=== PATIENT | female | born 1955 | race Caucasian/White ===

== ENCOUNTER → 2019-09-17 | Outpatient (CLI) | payer MEDICARE ==
--- NOTE | 2019-09-17 08:01 | US ---
EXAMINATION TYPE: US abdomen complete DATE OF EXAM: 09/17/2019 COMPARISON: NONE CLINICAL HISTORY: 63-year-old female RUQ Abd pain R10.11. TECHNIQUE: Multiple sonographic images of the abdomen are obtained. FINDINGS: EXAM MEASUREMENTS: Liver Length: 15.2 cm Gallbladder Wall: 0.2 cm CBD: 6.5 mm Spleen: 9.2 cm Right Kidney: 9.9 cm long Left Kidney: 10.5 cm long Pancreas: wnl Liver: wnl Gallbladder: wnl Evidence for sonographic Curry's sign: no CBD: Borderline dilated. This may be acceptable given the patient's age. Spleen: wnl Kidneys: No hydronephrosis on either side. Upper IVC: wnl Abd Aorta: moderate atherosclerotic changes. No evident aneurysm. IMPRESSION: 1. Borderline dilated caliber to the bile duct at 6.5 mm. This may be acceptable given patient's age. Correlate for normal alkaline phosphatase and bilirubin levels. 2. No gallstones or other specific abnormality seen.
== END | disposition home or self-care (01) ==
LOC: RADUSWWP 07:00
PROVIDERS: ATTEND Internal Medicine
DX: R10.11 Right upper quadrant pain (principal)
CPT/HCPCS: 76700

== ENCOUNTER → 2021-01-11 | Outpatient (CLI) | payer MEDICARE ==
--- NOTE | 2021-01-11 12:54 | XR ---
EXAMINATION TYPE: XR chest 2V, XR ribs RT DATE OF EXAM: 01/11/2021 COMPARISON: NONE HISTORY: [id number] MUSCLE SPASM BACK,PLEURODYNIA TECHNIQUE: Frontal and lateral views of the chest are obtained. 4 views of the right ribs are submit shy. FINDINGS: There is no focal air space opacity, pleural effusion, or pneumothorax seen. The cardiac silhouette size is within normal limits. The osseous structures are intact, there is an S-shaped th oracic lumbar scoliosis, multilevel spondylosis is present. There is no evident displaced rib fracture. IMPRESSION: No acute cardiopulmonary process. No evidence of displaced rib fracture. Bone scan could be performed for increased sensitivity as indicated. There is an underlying scoliosis, degenerative disc change.
== END | disposition home or self-care (01) ==
LOC: RADXRYALE 09:52
PROVIDERS: ATTEND Internal Medicine
DX: R07.81 Pleurodynia (principal); M62.838 Other muscle spasm
CPT/HCPCS: 71046

== ENCOUNTER → 2021-03-20 | Outpatient (CLI) | payer MEDICARE ==
[2021-03-20 11:09] LABS: Albumin 4.4 g/dL (3.5-5.0); Calcium 9.8 mg/dL (8.4-10.2); Potassium 4.2 mmol/L (3.5-5.1); Total Protein 7.5 g/dL (6.3-8.2)
[2021-03-20 11:17] LABS: Partial Thromboplastin Time 22.3 sec (22.0-30.0); Prothrombin Time 10.4 sec (9.0-12.0)
[2021-03-20 11:40] LABS: Appearance,Urine Cloudy (Clear); Bilirubin,Urine Negative (Negative); Blood,Urine Negative (Negative); Color,Urine Yellow; Glucose,Urine (UA) Negative (Negative); Ketones,Urine Negative (Negative); Leukocyte Esterase,Urine Negative (Negative); Mucus,Urine Rare /hpf; Nitrite,Urine Negative (Negative); PH, Urine 5.5 (5.0-8.0); Protein,Urine Negative (Negative); RBC,Urine <1 /hpf (0-5); Specific Gravity,Urine 1.013 (1.001-1.035); Squamous Epithelial Cell,Urine 8 /hpf (0-4); Urobilinogen,Urine <2.0 mg/dL (<2.0); WBC,Urine 2 /hpf (0-5)
[2021-03-20 11:46] LABS: HCT 52.8 % (34.0-46.0); HGB 16.8 gm/dL (11.4-16.0); MCH 28.9 pg (25.0-35.0); MCHC 31.9 g/dL (31.0-37.0); MCV 90.8 fL (80.0-100.0); Mean Platelet Volume 7.3; Platelet Count 385 k/uL (150-450); RBC 5.81 m/uL (3.80-5.40); RDW 13.7 % (11.5-15.5); WBC 11.5 k/uL (3.8-10.6)
== END | disposition home or self-care (01) ==
LOC: LABPAT 10:06
PROVIDERS: ATTEND Orthopaedic Surgery
DX: Z01.818 Encounter for other preprocedural examination (principal); I44.5 Left posterior fascicular block; M17.11 Unilateral primary osteoarthritis, right knee; R94.31 Abnormal electrocardiogram [ECG] [EKG]
CPT/HCPCS: 36415; 80053; 81001; 85027; 85610; 85730; 87070; 93005

== ENCOUNTER → 2021-04-05 | Outpatient (CLI) | payer MEDICARE ==
--- NOTE | 2021-04-06 09:30 | CT ---
EXAMINATION TYPE: CT lower leg RT SHOAIB mane knee replacement protocol DATE OF EXAM: 04/05/2021 COMPARISON: No radiographic correlation available HISTORY: 65-year-old female M17.11 Right knee, M25.561 pain in knee pre op planning TECHNIQUE: Contiguous axial scanning of the right lower extremity with scanning through the hip, knee , ankle without IV contrast. Coronal and sagittal reconstructions performed. CT DLP: 492 mGycm Automated exposure control for dose reduction was used. FINDINGS: Hip: Mild degenerative spurring and joint space narrowing at the right hip. Some vascular calcifications i n the right side of the pelvis. Osteitis pubis. Knee: Prominent lateral patellofemoral compartment cartilage narrowing. Bulky tricompartmental degenerative spurring especially medial and patellofemoral compartments. Small 1.4 cm Thornton's cyst and trace knee joint effusion. Posterior loose body measures 7 mm. Bone island within the femoral condyles. Extenso r mechanism appears intact. Ankle: There appears to be a low muscle belly of the conus brevis. Possible partial split of the peroneus br phyllis malleolar and inframalleolar. Subtalar joint align. Mild degenerative spurring medial aspect of the tibiotalar joint. IMPRESSION: CT OF THE RIGHT LOWER EXTREMITY FOR SURGICAL PLANNING ABOVE.
== END | disposition home or self-care (01) ==
LOC: RADCTMAIN 16:28
PROVIDERS: ATTEND Orthopaedic Surgery
DX: Z01.818 Encounter for other preprocedural examination (principal); M17.11 Unilateral primary osteoarthritis, right knee; M19.071 Primary osteoarthritis, right ankle and foot; M16.11 Unilateral primary osteoarthritis, right hip; M86.8X5 Other osteomyelitis, thigh; M71.21 Synovial cyst of popliteal space [Baker], right knee; M25.461 Effusion, right knee; M23.41 Loose body in knee, right knee

== ENCOUNTER → 2021-04-05 | Outpatient (CLI) | payer MEDICARE ==
[2021-04-05 16:54] LABS: Partial Thromboplastin Time 23.8 sec (22.0-30.0); Prothrombin Time 10.4 sec (9.0-12.0)
[2021-04-05 17:22] LABS: Appearance,Urine Clear (Clear); Bilirubin,Urine Negative (Negative); Blood,Urine Negative (Negative); Color,Urine Light Yellow; Glucose,Urine (UA) Negative (Negative); Ketones,Urine Negative (Negative); Leukocyte Esterase,Urine Negative (Negative); Nitrite,Urine Negative (Negative); Protein,Urine Negative (Negative); Specific Gravity,Urine 1.006 (1.001-1.035); Urobilinogen,Urine <2.0 mg/dL (<2.0)
[2021-04-05 22:33] LABS: HCT 51.5 % (37.2-46.3); HGB 16.3 g/dL (12.0-15.0); MCH 28.2 pg (27.0-32.0); MCHC 31.7 g/dL (32.0-37.0); MCV 89.3 fL (80.0-97.0); Mean Platelet Volume 9.9 fL (9.5-12.2); Platelet Count 397 X 10*3/uL (140-440); RBC 5.77 X 10*6/uL (4.10-5.20); RDW 13.4 % (11.5-14.5); WBC 11.61 X 10*3/uL (4.50-10.00)
[2021-04-05 23:02] LABS: African American GFR (CKD) 82.6 (60.0-200.0); Albumin 4.2 g/dL (3.8-4.9); Albumin/Globulin Ratio 1.46 (1.60-3.17); Anion Gap 12.3 mmol/L (10.00-18.00); BUN/Creat Ratio 19.86 Ratio (12.00-20.00); Blood Urea Nitrogen 16.8 mg/dL (9.0-27.0); Calcium 9.9 mg/dL (8.7-10.3); Carbon Dioxide 21.8 mmol/L (20.0-27.5); Globulin 2.9 g/dL (1.6-3.3); Non-African American GFR(CKD) 71.3 (60.0-200.0); Potassium 4.7 mmol/L (3.5-5.5); Total Bilirubin 0.4 mg/dL (0.30-1.20); Total Protein 7.1 g/dL (6.2-8.2)
== END | disposition home or self-care (01) ==
LOC: LABPAT 16:05
PROVIDERS: ATTEND Orthopaedic Surgery
DX: Z01.812 Encounter for preprocedural laboratory examination (principal)
CPT/HCPCS: 80053; 81003; 85027; 85610; 85730; 87070

== ENCOUNTER 2021-04-28 05:47 | Day surgery (SDC) | payer MEDICARE ==
[2021-04-26 10:24] VITALS: BMI 31.3
[~2021-04-28 05:47] MED LIST: VANCOMYCIN 1,000 MG in SODIUM CHLORIDE 0.9% 250 ML IVPB PRN
[2021-04-28] MEDS ORDERED: FAMOTIDINE 20 MG/2 ML VIAL IVP PRN (06:00)
[2021-04-28] MEDS ORDERED: TRANEXAMIC ACID 1,000 MG in SODIUM CHLORIDE 0.9% 100 ML IVPB PRN (06:00)
[2021-04-28] MEDS ORDERED: oxyCODONE ER 10 MG TAB.ER.12H PO PRN (06:00)
[2021-04-28] MEDS ORDERED: ACETAMINOPHEN TAB 500 MG TAB PO PRN (06:00)
[2021-04-28] MEDS ORDERED: KETOROLAC 15 MG/ML 1 ML VIAL IVP PRN (06:00)
[2021-04-28] MEDS ORDERED: ONDANSETRON 4 MG/2 ML VIAL IVP PRN ×2 (06:00→10:21)
[2021-04-28] MEDS ORDERED: DOCUSATE 100 MG CAP PO PRN (06:00)
[2021-04-28] MEDS ORDERED: DEXAMETHASONE SOD PHOSPHATE 10 MG/ML 1 ML VIAL IV PRN (06:00)
[2021-04-28] MEDS ORDERED: MIDAZOLAM 2 MG/2 ML VIAL IV PRN (06:05)
[2021-04-28] MEDS: LACTATED RINGERS 1,000 ML IV SCH ×5 (06:45→19:41)
[2021-04-28] MEDS ORDERED: LIDOCAINE 1% (10MG/ML) FOR IV START INTRADERMA ONE (06:45)
[2021-04-28] MEDS ORDERED: HYDROmorphone 0.5 MG/0.5 ML SYRINGE IVP PRN (07:00)
[2021-04-28] MEDS ORDERED: fentaNYL (PF) 50 MCG/ML 2 ML AMP IVP ONE (07:09)
[2021-04-28] MEDS ORDERED: PROPOFOL 10 MG/ML 20 ML VIAL IV ONE (07:31)
[2021-04-28] MEDS ORDERED: fentaNYL (PF) 50 MCG/ML 2 ML AMP ONE (07:31)
[2021-04-28] MEDS ORDERED: HYDROmorphone (PF) 1 MG/ML ONE (07:31)
[2021-04-28] MEDS ORDERED: ePHEDrine 50 MG/ML 1 ML VIAL ONE (07:31)
[2021-04-28] MEDS ORDERED: ROPIVACAINE 5 MG/ML 30 ML VIAL ONE (07:31)
[2021-04-28] MEDS ORDERED: PHENYLEPHRINE-0.9% NACL SYG 1,000 MCG/10 ML SYRINGE ONE (07:31)
[2021-04-28] MEDS ORDERED: SODIUM CHLORIDE 0.9% 100 ML BAG ONE (07:31)
[2021-04-28] MEDS ORDERED: MIDAZOLAM 2 MG/2 ML VIAL ONE (07:31)
[2021-04-28] MEDS ORDERED: TRANEXAMIC ACID 1,000 MG/10 ML VIAL ONE (07:31)
[2021-04-28] MEDS ORDERED: SUCCINYLCHOLINE CHLORIDE 100 MG/5 ML SYR IV ONE (07:31)
[2021-04-28] MEDS ORDERED: SODIUM CHLORIDE 0.9% (PF) 10 ML VIAL ONE (07:31)
[2021-04-28] MEDS ORDERED: LIDOCAINE 1% INJ 10MG/ML (20 ML MDV) ONE (07:31)
[2021-04-28] MEDS ORDERED: ceFAZolin 3,000 MG in SODIUM CHLORIDE 0.9% IRRIGATIO 3,000 ML IRRIGATION ONE (08:19)
--- NOTE | 2021-04-28 09:05 | P.ANPRN ---
Procedure Note - Anesthesia - Nerve Block Performed Right Adductor Canal Time Out Performed: Yes (07:07) Date of Procedure: 04/28/21 Procedure Start Time: Procedure Stop Time: :17 Location of Patient: PreOp Indication: Acute Post-Operative Pain, Requested by Surgeon (Dr Lubin) Sedation Type: Sedate with meaningful contact maintained Preparation: Sterile Prep Position: Supine Catheter: None Needle Types: Pajunk Needle Gauge: 21 Ultrasound used to visualize needle placement: Yes Ultrasound used to observe medication spread: Yes Injectate: 0.5% Ropivacaine (see comment for volume) (15cc + 5cc PF Normal saline) Blood Aspirated: No Pain Paresthesia on Injection Noted: No Resistance on Injection: Normal Events: Uneventful and Well Tolerated
--- NOTE | 2021-04-28 09:07 | P.ANPRN ---
Procedure Note - Anesthesia - Nerve Block Performed Right iPack Time Out Performed: Yes Date of Procedure: 04/28/21 Procedure Start Time: : Procedure Stop Time: : Location of Patient: PreOp Indication: Acute Post-Operative Pain, Requested by Surgeon (Dr Lubin) Sedation Type: Sedate with meaningful contact maintained Preparation: Sterile Prep Position: Supine Catheter: None Needle Types: Pajunk Needle Gauge: 21 Ultrasound used to visualize needle placement: Yes Ultrasound used to observe medication spread: Yes Injectate: 0.5% Ropivacaine (see comment for volume) (15cc +5cc PF Normnal saline) Blood Aspirated: No Pain Paresthesia on Injection Noted: No Resistance on Injection: Normal Image Stored and Saved: Yes Events: Uneventful and Well Tolerated
--- NOTE | 2021-04-28 09:57 | P.OP ---
Date of Procedure: 04/28/21 Preoperative Diagnosis: Right severe knee arthritis Postoperative Diagnosis: Right severe knee arthritis Procedure(s) Performed: Right total knee arthroplasty Implants: 1. Price triathlon size 2 cruciate retaining femur 2. Price triathlon size 2 universal baseplate 3. Price sized 2 CS ultra congruent polyethylene, 10 mm 4. Price 32 mm asymmetric polyethylene patellar component Anesthesia: GETA, regional Surgeon: Neymar Lubin Supplier Quality Engineering Manager #1: Gabi Lerma Estimated Blood Loss (ml): 100 IV fluids (ml): 1,200 Pathology: none sent Condition: stable Disposition: PACU Indications for Procedure: The patient is a very pleasant 65-year-old female with severe right knee arthritis was failed over 1 year of conservative treatments. Since she had failed conservative treatment she requested proceeding with the total knee arthroplasty. We discussed the potential risks and complications at length in the office including but certainly not limited to risks of anesthesia, wound healing issues, superficial infection, deep periprosthetic joint infection, aseptic loosening, instability, stiffness, damage to local blood vessels or nerves, an inability to regain preinjury level of function, continued or worsened pain, dissatisfaction with surgical outcome, need for further surgery, DVT, PE, other medical complications, and possibly loss of life or limb. The patient voiced her understanding that while these are the most common complications other less common complications are possible. She provided her verbal and written consent to go forward with surgery. Description of Procedure: The patient was identified in preoperative holding and the correct operative extremity was verified and marked with a marker. I reviewed the consent form with the patient at length. All of their questions were answered. The patient was given a block by anesthesia. They were then brought back to the operating room. They were transferred onto the operating room table where a general anesthetic, preoperative antibiotics, and tranexamic acid were administered by anesthesia. A tourniquet was applied to the proximal aspect of the operative extremity. The contralateral extremity was padded under the heel and secured to the operating room table with a nonsterile blue towel and tape. The ipsilateral arm was carefully draped across the patient's chest and secured with a pillow and foam. A post was applied over the lateral aspect of the ipsilateral thigh and a bolster was placed under the ipsilateral foot. I verified that the operative extremity was stable and the knee was flexed to 90. The operative extremity was then placed in a leg fitzpatrick, nonsterile drapes were applied, and the extremity was prepped and draped sterilely in the standard sterile fashion. Prior to starting surgery timeout was performed identifying the correct patient, operative extremity, and procedure. The leg was then elevated, exsanguinated with an Esmarch bandage, and the tourniquet was inflated. An anterior midline incision was made sharply with a scalpel. Once I had dissected deep to the superficial fascial layer medial and lateral flaps were elevated. A medial parapatellar arthrotomy was created. Upon opening the knee joint there were diffuse arthritic changes in all 3 compartments. The anterior horn of the medial meniscus were sharply released and a medial release was performed around the posterior medial corner of the knee to facilitate retractor placement. The fat pad was excised with electrocautery. The patella was found to be severely arthritic and a provisional cut was made with a sagittal saw to facilitate mobilization of the extensor mechanism during the procedure. Remnants of the ACL and PCL were then excised from the notch. 4 mm pins were then placed within the incision in the medial distal femur and proximal tibia. Arrays were applied to the pins and I verified they were completely tightened. The knee was then registered with the Voxel (Internap) robot and manipulations in implant position were made to balance the knee and opitmize implant position. Using the Nanveet robotic saw all cuts were made in accordance with our plan. After all bony fragments had been removed the cuts were verified with the planar probe. The tibia was then subluxed forward and sized. The knee was brought into flexion and a lamina hand screen printer was placed to allow removal of the meniscal remnants both medially and laterally as well as posterior osteophytes. Local anesthetic was then infiltrated around the joint capsule. Trial implants were then placed within the knee. Range of motion and collateral ligament tension was then evaluated. Adjustments in implant size and position were then made accordingly. Once the knee was felt to be appropriately balanced the Navneet pins were removed. The patella was then recut, sized, and punched. A trial patellar button was then placed. With the trial components in place, the patella tracked midline. The femur was then drilled and the trial component removed. The trial tibial component was then appropriately rotated, pinned, and prepared for the keel. All trial components were then removed from the knee. The knee was thoroughly irrigated with pulsatile lavage. Cement was prepared via vacuum mixing in a bowl on the back table. I then hand pressurized cement into the femur and tibia and placed the implants beginning with the tibial base tray and poly liner, femoral component, and finally the patellar button. All extruded cement was removed including from the pin sites. Once the cement had hardened the knee was evaluated one final time with the final polyethylene liner in place. The knee had full extension and flexion and felt stable to varus and valgus stress throughout the arc of motion. The tourniquet was released and with the tourniquet down the patella tracked midline. All bleeders were controlled with electrocautery. The knee was then soaked for 3 minutes with a dilute Betadine soak. The knee was thoroughly irrigated using 3 L of sterile saline and pulsatile lavage. A deep drain was placed. The extensor mechanism was then reapproximated using pop off Vicryl sutures followed by a running barbed suture. The knee was then closed in layers with a 0 strata fix for the deep fascial layer, 2-0 strata fix for the superficial subcutaneous layer and Monocryl and Steri-Strips for the skin. A sterile dressing and drain sponge were applied. I verified that all instrument, sponge, and sharp counts were correct. The patient was then transferred off the operating room table, extubated, and brought to recovery having tolerated the procedure well. Amada Bonilla PA-C was required as a skilled sales office assistant due to the complexity of the procedure for patient positioning, draping, retraction, placement of hardware, and closure of wound. PLAN: The patient can weight-bear as tolerated on the operative extremity. DVT prophylaxis with aspirin 81 mg twice a day based on preoperative risk stratification. Follow-up in the office in 2 weeks for wound check and x-rays of the knee including an AP and lateral.
[2021-04-28] MEDS ORDERED: bisacodyL 10 MG SUPP RECTAL PRN (10:21)
[2021-04-28] MEDS ORDERED: NALOXONE 0.4 MG/ML 1 ML VIAL IV PRN (10:21)
[2021-04-28] MEDS ORDERED: MAGNESIUM HYDROXIDE 2,400 MG/10 ML CUP PO PRN (10:21)
[2021-04-28] MEDS ORDERED: TEMAZEPAM 15 MG CAP PO PRN (10:21)
[2021-04-28] MEDS ORDERED: HYDROmorphone 0.2 MG/1 ML SYRINGE IVP PRN ×2 (10:21)
[2021-04-28] MEDS ORDERED: HYDROmorphone 1 MG/ML 1 ML SYRINGE IVP PRN (10:21)
[2021-04-28] MEDS ORDERED: NA PHOS,M-B/NA PHOS,DI-BA 133 ML ENEMA RECTAL PRN (10:21)
--- NOTE | 2021-04-28 10:43 | XR ---
EXAMINATION TYPE: XR knee limited RT DATE OF EXAM: 04/28/2021 COMPARISON: NONE TECHNIQUE: Two views submitted HISTORY: Post op FINDINGS: There is a prosthetic knee in near anatomic alignment. There is soft tissue edema and emphysema. IMPRESSION: 1. Postoperative change. Appears in near-anatomic alignment
[2021-04-28] MEDS: HYDROcodone/APAP 7.5-325MG 1 EACH TAB PO PRN ×2 (16:17→22:09)
[2021-04-28] MEDS: ASPIRIN 81 MG PO SCH (19:40)
[2021-04-28] MEDS ORDERED: SENNOSIDES-DOCUSATE SODIUM 1 EACH TAB PO SCH (21:00)
[2021-04-29] MEDS: HYDROcodone/APAP 7.5-325MG 1 EACH TAB PO PRN ×2 (04:41→10:17)
[2021-04-29 07:22] VITALS: BP 115/68; PULSE 61; RESP 20; TEMP 97.9
[2021-04-29] MEDS: ASPIRIN 81 MG PO SCH (08:25)
[2021-04-29] MEDS: LACTATED RINGERS 1,000 ML IV SCH (08:26)
[2021-04-29 08:53] LABS: Basophils # (A) 0.03 X 10*3/uL (0.00-0.10); Basophils % (A) 0.2 %; Eosinophils # (A) 0 X 10*3/uL (0.04-0.35); Eosinophils % (A) 0 %; HCT 40.6 % (37.2-46.3); HGB 12.8 g/dL (12.0-15.0); Immature Grans, Automated 0.4 %; Lymphocytes # (A) 1.43 X 10*3/uL (0.90-5.00); Lymphocytes % (A) 9.1 %; MCH 28.4 pg (27.0-32.0); MCHC 31.5 g/dL (32.0-37.0); Mean Platelet Volume 9.9 fL (9.5-12.2); Monocytes # (A) 1.11 X 10*3/uL (0.20-1.00); Monocytes % (A) 7.1 %; NRBC Per 100 WBC 0 /100 WBCS (0.0-0.0); Neutrophils % (A) 83.2 %; Platelet Count 333 X 10*3/uL (140-440); RBC 4.51 X 10*6/uL (4.10-5.20); RDW 13.8 % (11.5-14.5); WBC 15.73 X 10*3/uL (4.50-10.00)
[2021-04-29] MEDS ORDERED: MELOXICAM 7.5 MG TAB PO SCH (09:00)
--- NOTE | 2021-04-29 10:35 | P.DS ---
Providers Expected date of discharge: 04/29/21 Attending physician: Neymar Lubin Consults: 04/28/21 10:21 Consult Physician Routine Consulting Provider: Brenda Freire Consult Reason/Comments: Medical management Do you want consulting provider notified?: Yes Primary care physician: Pau Powell - Discharge Diagnosis(es) (1) Primary osteoarthritis of right knee Current Visit: Yes Status: Acute (2) Status post total right knee replacement Current Visit: Yes Status: Acute Hospital Course: This is a pleasant 65-year-old female last seen in our office with complaints of right knee pain. Patient has known history of degenerative arthritis of the right knee and presented to discuss options. After discussion and consideration, patient elected to proceed with a total knee arthroplasty of the right knee. The patient was seen preoperatively and medically cleared for surgery by her primary care physician. The patient was admitted to [facility] and underwent right total knee arthroplasty on 04/28/[address] Lubin. The procedure was performed without complications or sequelae. The patient has done well postoperatively. The patient was seen and evaluated at bedside today and denies any new complaints. Pain is reasonably controlled. Dressing is clean dry and intact. Incision looks fine with no erythema or active drainage. Calf is soft and nontender. The patient has full foot and ankle motion without difficulty. Patient's right lower extremity is neurovascular intact. Patient is orthopedically stable for discharge to home today. Pertinent Studies: Laboratory Tests 04/29/21 03:50 WBC 15.73 H RBC 4.51 Hgb 12.8 Hct 40.6 MCHC 31.5 L Patient Condition at Discharge: Stable Plan - Discharge Summary Discharge Rx Participant: Yes New Discharge Prescriptions: New Aspirin [Adult Low Dose Aspirin EC] 81 mg PO BID #1 tab Meloxicam [Mobic] 1 - 2 tab PO DAILY PRN #30 tab PRN Reason: Pain Gabapentin [Neurontin] 300 mg PO BID 5 Days #10 cap HYDROcodone/APAP 7.5-325MG [Clayton 7.5-325] 1 - 2 tab PO Q6HR PRN #32 tab PRN Reason: Pain Sennosides-Docusate Sodium [Senokot-S] 1 tab PO BID #60 tablet Ondansetron Odt [Zofran Odt] 4 mg PO Q8HR PRN #14 tab PRN Reason: Nausea No Action traMADol HCL [Ultram] 50 mg PO Q6HR PRN PRN Reason: Pain Alendronate Sodium [Fosamax] 70 mg PO QMONTHLY Aspirin/Acetaminophen/Caffeine [Excedrin Extra Strength Caplet] 1 each PO DIRECTED PRN PRN Reason: Pain lisinopriL 10 mg PO HS Atorvastatin [Lipitor] 40 mg PO HS Discharge Medication List Alendronate Sodium [Fosamax] 70 mg PO QMONTHLY 04/26/21 [History] Aspirin/Acetaminophen/Caffeine [Excedrin Extra Strength Caplet] 1 each PO DIRECTED PRN 04/26/21 [History] Atorvastatin [Lipitor] 40 mg PO HS 04/26/21 [History] lisinopriL 10 mg PO HS 04/26/21 [History] traMADol HCL [Ultram] 50 mg PO Q6HR PRN 04/26/21 [History] Aspirin [Adult Low Dose Aspirin EC] 81 mg PO BID #1 tab 04/28/21 [Rx] Gabapentin [Neurontin] 300 mg PO BID 5 Days #10 cap 04/28/21 [Rx] HYDROcodone/APAP 7.5-325MG [Clayton 7.5-325] 1 - 2 tab PO Q6HR PRN #32 tab 04/28/21 [Rx] Meloxicam [Mobic] 1 - 2 tab PO DAILY PRN #30 tab 04/28/21 [Rx] Ondansetron Odt [Zofran Odt] 4 mg PO Q8HR PRN #14 tab 04/28/21 [Rx] Sennosides-Docusate Sodium [Senokot-S] 1 tab PO BID #60 tablet 04/28/21 [Rx] Follow up Appointment(s)/Referral(s): [facility], [NON-STAFF] - ([facility] will call you to schedule your in home nursing and physical therapy visits. ) Neymar Lubin MD [Medical Doctor] - 2 Weeks Activity/Diet/Wound Care/Special Instructions: May bear weight as tolerated with walker. May shower 2 days post op. Leave Optifoam dressing intact 7 days. Discharge Disposition: HOME WITH HOME HEALTH SERVICES
== END 2021-04-29 12:05 | disposition home health service (06) ==
LOC: OR 05:47 → 4SSUR 09:48 → OR 04-29 12:05
PROVIDERS: ATTEND Orthopaedic Surgery
DX: M17.11 Unilateral primary osteoarthritis, right knee (principal); I10 Essential (primary) hypertension; E78.5 Hyperlipidemia, unspecified; M79.7 Fibromyalgia; L98.9 Disorder of the skin and subcutaneous tissue, unspecified; K21.9 Gastro-esophageal reflux disease without esophagitis; Z97.3 Presence of spectacles and contact lenses; Z90.710 Acquired absence of both cervix and uterus; Z20.822 Contact with and (suspected) exposure to COVID-19; Z98.890 Other specified postprocedural states; Z83.3 Family history of diabetes mellitus; Z87.891 Personal history of nicotine dependence; Z79.83 Long term (current) use of bisphosphonates; Z79.891 Long term (current) use of opiate analgesic; Z79.899 Other long term (current) drug therapy; M19.90 Unspecified osteoarthritis, unspecified site
CPT/HCPCS: 97116; 97110; 97161; 64447; 64999; 76942; 85025; 88300; 87635; 73560; 27447; C1776; C1713; J2250; J3370; J1100; J0690 ×2; J2405; J2001; J3010; J1170; J2795; J1885; J2370; J0330; J2704

== ENCOUNTER → 2022-06-05 | Outpatient (CLI) | payer MEDICARE ==
[2022-06-05 22:35] LABS: Basophils # (A) 0.04 X 10*3/uL (0.00-0.10); Basophils % (A) 0.3 %; Eosinophils # (A) 0.15 X 10*3/uL (0.04-0.35); Eosinophils % (A) 1.1 %; HCT 51.7 % (37.2-46.3); Immature Grans, Automated 0.8 %; Lymphocytes # (A) 3.68 X 10*3/uL (0.90-5.00); Lymphocytes % (A) 27.7 %; MCH 26.3 pg (27.0-32.0); MCHC 30.9 g/dL (32.0-37.0); Mean Platelet Volume 10.1 fL (9.5-12.2); Monocytes % (A) 7.5 %; NRBC Per 100 WBC 0 /100 WBCS (0.0-0.0); Neutrophils # (A) 8.32 X 10*3/uL (1.80-7.70); Neutrophils % (A) 62.6 %; Platelet Count 332 X 10*3/uL (140-440); RBC 6.08 X 10*6/uL (4.10-5.20); RDW 15.8 % (11.5-14.5); WBC 13.29 X 10*3/uL (4.50-10.00)
[2022-06-05 23:19] LABS: Hepatitis B Surface Antigen Nonreactive (Nonreactive); Hepatitis C IgG Antibody Nonreactive (Nonreactive)
[2022-06-06 00:53] LABS: African American GFR (CKD) 75.5 (60.0-200.0); Albumin/Globulin Ratio 1.67 (1.60-3.17); Anion Gap 12.3 mmol/L (10.00-18.00); BUN/Creat Ratio 29.03 Ratio (12.00-20.00); Blood Urea Nitrogen 26.3 mg/dL (9.0-27.0); Calcium 9.6 mg/dL (8.7-10.3); Carbon Dioxide 23.2 mmol/L (20.0-27.5); Globulin 2.4 g/dL (1.6-3.3); Hepatitis B Surface Antibody Reactive (Nonreactive); Non-African American GFR(CKD) 65.2 (60.0-200.0); Potassium 4.3 mmol/L (3.5-5.5); Total Bilirubin 0.3 mg/dL (0.30-1.20); Total Protein 6.4 g/dL (6.2-8.2)
== END | disposition home or self-care (01) ==
LOC: LABWHC1 10:59
PROVIDERS: ATTEND Student in an Organized Health Care Education/Training Program
DX: L27.0 Generalized skin eruption due to drugs and medicaments taken internally (principal); L30.9 Dermatitis, unspecified; D48.5 Neoplasm of uncertain behavior of skin
CPT/HCPCS: 36415; 80053; 85025; 86480; 86704; 86706; 86803; 87340

== ENCOUNTER 2022-06-20 16:33 | Emergency (ER) | payer MEDICARE ==
[2022-06-20 17:58] LABS: Basophils % (A) 0 %; Eosinophils % (A) 0 %; HCT 46.2 % (34.0-46.0); HGB 15.3 gm/dL (11.4-16.0); Lymphocytes # (A) 0.9 k/uL (1.0-4.8); Lymphocytes % (A) 7 %; MCH 27.6 pg (25.0-35.0); MCHC 33.1 g/dL (31.0-37.0); MCV 83.2 fL (80.0-100.0); Mean Platelet Volume 7.5; Monocytes # (A) 0.4 k/uL (0-1.0); Monocytes % (A) 3 %; Neutrophils # (A) 11.1 k/uL (1.3-7.7); Neutrophils % (A) 89 %; Platelet Count 294 k/uL (150-450); RBC 5.55 m/uL (3.80-5.40); RDW 14.7 % (11.5-15.5); WBC 12.6 k/uL (3.8-10.6)
[2022-06-20 18:09] LABS: ALT 29 U/L (4-34); AST 19 U/L (14-36); African American GFR (CKD) >90 (>60 ml/min/1.73 sqM); Albumin 3.7 g/dL (3.5-5.0); Alkaline Phosphatase 71 U/L (38-126); Anion Gap 8 mmol/L; Blood Urea Nitrogen 22 mg/dL (7-17); Calcium 9.5 mg/dL (8.4-10.2); Carbon Dioxide 21 mmol/L (22-30); Chloride 107 mmol/L (98-107); Glucose 133 mg/dL (74-99); Non-African American GFR(CKD) 82 (>60 ml/min/1.73 sqM); Potassium 4.4 mmol/L (3.5-5.1); Sodium 136 mmol/L (137-145); Total Bilirubin 0.3 mg/dL (0.2-1.3); Total Protein 6.5 g/dL (6.3-8.2)
[2022-06-20 18:19] LABS: INR 0.9 (<1.2); Prothrombin Time 9.8 sec (9.0-12.0)
[2022-06-20] MEDS ORDERED: LABETALOL 5 MG/ML VIAL MDV IVP STA (18:24)
[2022-06-20 18:33] LABS: Partial Thromboplastin Time 21.7 sec (22.0-30.0)
--- NOTE | 2022-06-20 18:51 | XR ---
EXAMINATION TYPE: XR chest 2V DATE OF EXAM: 06/20/2022 COMPARISON: NONE HISTORY: Shortness of breath TECHNIQUE: Frontal and lateral views of the chest are obtained. FINDINGS: Scattered senescent parenchymal changes noted. Hyperinflation compatible with COPD. No evidence for infiltrate. No evidence for atelectasis. Heart size is stable. Mediastinal structures are stable and grossly unremarkable. No evidence for hilar prominence. Degenerative changes dorsal spine. IMPRESSION: 1. No evidence for acute pulmonary disease.
--- NOTE | 2022-06-20 19:47 | CT ---
EXAMINATION TYPE: CT brain wo con DATE OF EXAM: 06/20/2022 COMPARISON: None HISTORY: headache and high BP CT DLP: 1133.4 mGycm Automated exposure control for dose reduction was used. FINDINGS: There is a large calcified mass which most likely is extra-axial along the left frontal cerebral conv exity measuring 2.3 x 1.8 cm with compression the adjacent cortex. There is no midline shift or mass effect. Mild generalized degenerative change. Intracranial atherosclerotic changes. Craniocervical junction is demonstrating a low-lying cerebellar tonsils the level the foramen magnum. Changes of chronic sinusitis with nasal septal deviation. Orbits are symmetric. Faint periventricula r low-attenuation nonspecific but most typical remote white matter ischemia. IMPRESSION: 1. No evidence of acute hemorrhage or mass effect. 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 Follow-up MRI recommended. 2. Mild degenerative change 3. low-lying cerebellar tonsils
[2022-06-20] MEDS ORDERED: hydrALAZINE HCL 20 MG/ML 1 ML VIAL IVP STA (19:55)
[2022-06-20] MEDS ORDERED: ORPHENADRINE 30 MG/ML 2 ML VIAL IVP STA (20:35)
[2022-06-20] MEDS ORDERED: KETOROLAC 15 MG/ML 1 ML VIAL IVP STA (20:35)
--- NOTE | 2022-06-20 20:53 | ED ---
General Adult HPI - General Chief complaint: Recheck/Abnormal Lab/Rx Stated complaint: HIGH BP Time Seen by Provider: 06/20/22 17:59 Source: patient Mode of arrival: ambulatory Limitations: no limitations - History of Present Illness Initial comments: Patient is a 66-year-old female presenting with chief complaint of elevated blood pressure. Patient was sent in by her PCP Dr. Powell. Patient was discontinued of her antihypertensives about 1 month ago by her environmental health physician and not placed on an alternative medication. Patient has had intermittent headaches ongoing for the last month. She also admits to intermittent blurry vision. Pain is sharp and radiates up into the occipital region. No head injury, loss of consciousness, seizure, nausea, vomiting, dizziness, chest pain, palpitations, numbness, tingling. - Related Data Home Medications Medication Instructions Recorded Confirmed Alendronate Sodium [Fosamax] 70 mg PO QMONTHLY 04/26/21 06/20/22 Apremilast [Otezla 28 day Starter 1 tab PO DIRECTED 06/20/22 06/20/22 Pack 10 mg/20 mg (4 tabs ea) & 30 mg (19 tabs)] predniSONE See Taper PO DIRECTED 06/20/22 06/20/22 Previous Rx's Medication Instructions Recorded amLODIPine [Norvasc] 5 mg PO DAILY #5 tab 06/20/22 Allergies Allergy/AdvReac Type Severity Reaction Status Date / Time No Known Allergies Allergy Verified 06/20/22 17:06 Review of Systems ROS Statement: Those systems with pertinent positive or pertinent negative responses have been documented in the HPI. ROS Other: All systems not noted in ROS Statement are negative. Past Medical History Past Medical History: Fibromyalgia, Hypertension, Osteoarthritis (OA) Additional Past Medical History / Comment(s): scoliosis, DDD History of Any Multi-Drug Resistant Organisms: None Reported Past Surgical History: Hysterectomy, Joint Replacement Additional Past Surgical History / Comment(s): rt knee, Past Psychological History: No Psychological Hx Reported Smoking Status: Never smoker Past Alcohol Use History: Rare Past Drug Use History: None Reported General Exam Limitations: no limitations General appearance: alert, in no apparent distress Head exam: Present: atraumatic, normocephalic, normal inspection Eye exam: Present: normal appearance, PERRL, EOMI. Absent: scleral icterus, conjunctival injection, periorbital swelling Neck exam: Present: normal inspection, full ROM Respiratory exam: Present: normal lung sounds bilaterally. Absent: respiratory distress, wheezes, rales, rhonchi, stridor Cardiovascular Exam: Present: regular rate, normal rhythm, normal heart sounds. Absent: systolic murmur, diastolic murmur, rubs, gallop, clicks Neurological exam: Present: alert, oriented X3, CN II-XII intact Expanded Patient oriented to: Present: person, place, time Speech: Present: fluid speech Cranial nerves: EOM's Intact: Normal, Facial Sensation: Normal Cerebellar function: Finger to Nose: Normal Sensory exam: Upper Extremity Light Touch: Normal, Lower Extremity Light Touch: Normal Motor strength exam: RUE: 5, LUE: 5, RLE: 5, LLE: 5 Eye Response: (4) open spontaneously Motor Response: (6) obeys commands Verbal Response: (5) oriented [place] Total: 15 Psychiatric exam: Present: normal affect, normal mood Skin exam: Present: warm, dry, intact, normal color. Absent: rash Course Vital Signs 06/20/22 06/20/22 06/20/22 16:55 18:15 19:14 Temperature 98.3 F Pulse Rate 86 79 67 Respiratory 20 18 17 Rate Blood Pressure 177/117 191/114 188/95 O2 Sat by Pulse 96 96 95 Oximetry 06/20/22 06/20/22 06/20/22 20:10 20:49 21:24 Temperature 98.0 F Pulse Rate 61 66 69 Respiratory 16 17 16 Rate Blood Pressure 187/97 178/92 181/88 O2 Sat by Pulse 97 96 96 Oximetry EKG Findings - EKG Comments: EKG Findings:: Sinus rhythm ventricular rate 79. UT interval 136. QRS 91. QT 355. QTc 389. No ischemic changes. Medical Decision Making - Medical Decision Making Was pt. sent in by a medical professional or institution (, PA, CL[employer] TR[employer], urgent care, hospital, or penitentiary...) When possible be specific @ -No Did you speak to anyone other than the patient for history (EMS, parent, family, police, friend...)? What history was obtained from this source @ -No Did you review nursing and triage notes (agree or disagree)? Why? @ -I reviewed and agree with nursing and triage notes Were old charts reviewed (outside hosp., previous admission, EMS record, old EKG, old radiological studies, urgent care reports/EKG's, penitentiary records)? Report findings @ -No old charts were reviewed Differential Diagnosis (chest pain, altered mental status, abdominal pain women, abdominal pain men, vaginal bleeding, weakness, fever, dyspnea, syncope, heada bryson, dizziness, GI bleed, back pain, seizure, CVA, palpatations, mental health, musculoskeletal)? @ -MDM Differential Headache: Migraine, tension, cluster, carbon monoxide, central venous thrombosis, pension karma temporal arteritis, acute closure glaucoma, intercranial hemorrhage, mastoiditis, sinusitis, head injury this is not meant to be an all-inclusive list. EKG interpreted by me (3pts min.). @ -As above X-rays interpreted by me (1pt min.). @ -Chest x-ray shows no acute process CT interpreted by me (1pt min.). @ -CT shows no evidence of acute hemorrhage or mass effect. There is a 2.3 x 1.8 cm extra-axial mass involving the left cerebral convex the with mild compression of the frontal lobe most typical of a calcified meningioma. Mild degenerative change. Low-lying cerebellar tonsils. U/S interpreted by me (1pt. min.). @ -None done What testing was considered but not performed or refused? (CT, X-rays, U/S, labs)? Why? @ -None What meds were considered but not given or refused? Why? @ -None Did you discuss the management of the patient with other professionals (professionals i.e. , PA, [employer], lab, RT, psych nurse, social services analyst, union laborer, teacher, [employer] operations staff officer, egg caser)? Give summary @ -No Was smoking cessation discussed for >3mins.? @ -No Was critical care preformed (if so, how long)? @ -No Were there social determinants of health that impacted care today? How? (Homelessness, low income, unemployed, alcoholism, drug addiction, transportation, low edu. Level, literacy, decrease access to med. care, longterm, rehab)? @ -No Was there de-escalation of care discussed even if they declined (Discuss DNR or withdrawal of care, Hospice)? DNR status @ -No What co-morbidities impacted this encounter? (DM, HTN, Smoking, COPD, CAD, Cancer, CVA, ARF, Chemo, Hep., AIDS, mental health diagnosis, sleep apnea, morbid obesity)? @ -Hypertension Was patient admitted / discharged? Hospital course, mention meds given and route, prescriptions, significant lab abnormalities, going to OR and other pertinent info. @ -Discharge. Patient is a 66-year-old female presenting with chief complaint of elevated blood pressure and headache. Patient fosinopril was discontinued about a month ago by her environmental health physician due to concerns for rash. Patient has had intermittent headache for a few weeks. On physical examination there are no focal neurological deficits. Laboratory shows WBC 12.6. Sodium 136. Chest x- ray is negative. Troponin is negative. CT of the brain shows no acute intracranial process, there is a mass most consistent with calcified meningioma which appears chronic. Follow-up MRI and outpatient setting as recommended. Patient is given antihypertensive as well as analgesic medication for her headache. On reassessment she reports improvement in her symptoms. Blood pressure has come down to 178/92. Patient will be following up with her PCP. Follow-up with PCP. Report back to ER with any new or worsening symptoms. Discussed return parameters and answered all questions. Patient conveyed verbal understanding and agreed to the plan. I discussed this case in detail with my attending Dr. Hernandez Undiagnosed new problem with uncertain prognosis? @ -No Drug Therapy requiring intensive monitoring for toxicity (Heparin, Nitro, Insulin, Cardizem)? @ -No Were any procedures done? @ -No Diagnosis/symptom? @ -Hypertension Acute, or Chronic, or Acute on Chronic? @ -Acute on chronic Uncomplicated (without systemic symptoms) or Complicated (systemic symptoms)? @ -Complicated Side effects of treatment? @ -No Exacerbation, Progression, or Severe Exacerbation? @ -No Poses a threat to life or bodily function? How? (Chest pain, USA, CT, pneumonia, PE, COPD, DKA, ARF, appy, cholecystitis, CVA, Diverticulitis, Homicidal, Suicidal, threat to staff... and all critical care pts) @ - - Lab Data Result diagrams: 06/20/22 17:48 06/20/22 17:48 Lab Results 06/20/22 06/20/22 06/20/22 Range/Units 17:48 17:48 17:48 WBC 12.6 H (3.8-10.6) k/uL RBC 5.55 H (3.80-5.40) m/uL Hgb 15.3 (11.4-16.0) gm/dL Hct 46.2 H (34.0-46.0) % MCV 83.2 (80.0-100.0) fL MCH 27.6 (25.0-35.0) pg MCHC 33.1 (31.0-37.0) g/dL RDW 14.7 (11.5-15.5) % Plt Count 294 (150-450) k/uL MPV 7.5 Neutrophils % 89 % Lymphocytes % 7 % Monocytes % 3 % Eosinophils % 0 % Basophils % 0 % Neutrophils # 11.1 H (1.3-7.7) k/uL Lymphocytes # 0.9 L (1.0-4.8) k/uL Monocytes # 0.4 (0-1.0) k/uL Eosinophils # 0.0 (0-0.7) k/uL Basophils # 0.0 (0-0.2) k/uL PT 9.8 (9.0-12.0) sec INR 0.9 (<1.2) APTT 21.7 L (22.0-30.0) sec Sodium 136 L (137-145) mmol/L Potassium 4.4 (3.5-5.1) mmol/L Chloride 107 (98-107) mmol/L Carbon Dioxide 21 L (22-30) mmol/L Anion Gap 8 mmol/L BUN 22 H (7-17) mg/dL Creatinine 0.75 (0.52-1.04) mg/dL Est GFR (CKD-EPI)AfAm >90 (>60 ml/min/1.73 sqM) Est GFR (CKD-EPI)NonAf 82 (>60 ml/min/1.73 sqM) Glucose 133 H (74-99) mg/dL Calcium 9.5 (8.4-10.2) mg/dL Total Bilirubin 0.3 (0.2-1.3) mg/dL AST 19 (14-36) U/L ALT 29 (4-34) U/L Alkaline Phosphatase 71 (38-126) U/L Troponin I (0.000-0.034) ng/mL Total Protein 6.5 (6.3-8.2) g/dL Albumin 3.7 (3.5-5.0) g/dL 06/20/22 Range/Units 17:48 WBC (3.8-10.6) k/uL RBC (3.80-5.40) m/uL Hgb (11.4-16.0) gm/dL Hct (34.0-46.0) % MCV (80.0-100.0) fL MCH (25.0-35.0) pg MCHC (31.0-37.0) g/dL RDW (11.5-15.5) % Plt Count (150-450) k/uL MPV Neutrophils % % Lymphocytes % % Monocytes % % Eosinophils % % Basophils % % Neutrophils # (1.3-7.7) k/uL Lymphocytes # (1.0-4.8) k/uL Monocytes # (0-1.0) k/uL Eosinophils # (0-0.7) k/uL Basophils # (0-0.2) k/uL PT (9.0-12.0) sec INR (<1.2) APTT (22.0-30.0) sec Sodium (137-145) mmol/L Potassium (3.5-5.1) mmol/L Chloride (98-107) mmol/L Carbon Dioxide (22-30) mmol/L Anion Gap mmol/L BUN (7-17) mg/dL Creatinine (0.52-1.04) mg/dL Est GFR (CKD-EPI)AfAm (>60 ml/min/1.73 sqM) Est GFR (CKD-EPI)NonAf (>60 ml/min/1.73 sqM) Glucose (74-99) mg/dL Calcium (8.4-10.2) mg/dL Total Bilirubin (0.2-1.3) mg/dL AST (14-36) U/L ALT (4-34) U/L Alkaline Phosphatase (38-126) U/L Troponin I <0.012 (0.000-0.034) ng/mL Total Protein (6.3-8.2) g/dL Albumin (3.5-5.0) g/dL Disposition Clinical Impression: Hypertension Disposition: HOME SELF-CARE Condition: Good Instructions (If sedation given, give patient instructions): Hypertension (ED) Additional Instructions: Follow-up with PCP. Report back to ER with any new or worsening symptoms. Take medication as prescribed. Prescriptions: amLODIPine [Norvasc] 5 mg PO DAILY #5 tab Is patient prescribed a controlled substance at d/c from ED?: No Referrals: Pau Powell MD [Primary Care Provider] - 1-2 days Time of Disposition: 21:11
[2022-06-20 21:24] VITALS: BP 181/88; PULSE 69; RESP 16; TEMP 98
== END 2022-06-20 21:26 | disposition home or self-care (01) ==
LOC: EC 16:33
DX: I10 Essential (primary) hypertension (principal); M19.90 Unspecified osteoarthritis, unspecified site; Z79.899 Other long term (current) drug therapy
CPT/HCPCS: 36415; 93005; 80053; 84484; 85025; 85610; 85730; 71046; 70450; 99284; 96374; 96375 ×3; J0360; J2360; J1885

== ENCOUNTER → 2023-06-20 | Outpatient (CLI) | payer MEDICARE ==
--- NOTE | 2023-06-20 13:28 | CT ---
EXAMINATION TYPE: CT brain wo con DATE OF EXAM: 06/20/2023 COMPARISON: 06/20/2022 INDICATION: Benign neoplasm of cerebral meningis DLP: 1174 mGycm, Automated exposure control for dose reduction was used. CONTRAST: None CT of the brain is performed utilizing 3 mm thick sections through the posterior fossa and 3 mm thick sections through the remaining calvarium. Study is performed within 24 hours of arrival to the hosp [place]. No abnormal hyperdensity is present to suggest an acute intracranial hemorrhage. There is a 2.4 x 1.9 cm calcification left extra-axial frontal region. Findings likely related to a l arge meningioma. This was present previously and appears stable. No adjacent edema is evident. No acute infarcts are evident. Ventricles and sulci are appropriate for the patient age. Some debris is within the right maxillary sinus. Mucosal thickening is within the left maxillary sinu s. Remaining paranasal sinuses and mastoid air cells are clear. IMPRESSION: 1. Stable extra-axial calcification left frontal region
--- NOTE | 2023-06-20 13:30 | BD ---
EXAMINATION TYPE: Axial Bone Density DATE OF EXAM: 06/20/2023 CLINICAL HISTORY: 67 years old Female. ICD-10 CODE: D32.0 BENIGN NEOPLASM OF CEREBRAL MENINGES Height: 59 Weight: 174.3 FRAX RISK QUESTIONS: Alcohol (3 or more units per day): no Family History (Parent hip fracture): no Glucocorticoids (More than 3mos): no (Ex: prednisone, prednisolone, methylprednisolone, dexamethasone, and hydrocortisone). History of Fracture in Adulthood: no Secondary Osteoporosis: 1. Type 1 Diabetes: no 2. Hyperthyroidism: no 3. Menopause before 45: yes 4. Malnutrition: no 5. Chronic liver disease: no Rheumatoid Arthritis: no Current Tobacco Use: no RISK FACTORS HISTORY OF: Surgery to Spine/Hip(right/left)/Wrist (right/left): no EXAM MEASUREMENTS: Bone mineral densitometry was performed using the Razz System. Bone mineral density as measured about the Lumbar spine is: ----- L1-L4(G/cm2): 1.124 T Score Values are as follows: ----- L1: -2.3 ----- L2: -0.1 ----- L3: 1.1 ----- L4: -0.6 ----- L1-L4: -0.5 Z Score Values are as follows: ----- L1: -1.1 ----- L2: 1.1 ----- L3: 2.2 ----- L4: 0.6 ----- L1-L4: 0.7 Bone mineral density : baseline Bone mineral density about the R hip (g/cm2): 0.799 Bone mineral density about the L hip (g/cm2): 0.857 T Score values are as follows: -----R Neck: -1.9 -----L Neck: -1.7 -----R Total: -1.7 -----L Total: -1.2 Z Score values are as follows: -----R Neck: -0.5 -----L Neck: -0.3 -----R Total: -0.6 -----L Total: -0.1 Bone mineral density: baseline FRAX%s: The graph provided illustrates a 10.4% chance for a major osteoporotic fx and a 1.8% chance f or the hips probability for fx in 10 years time. IMPRESSION: Osteopenia (T Score between -2.5 and -1). There is slightly increased risk of fracture and the patient may be considered for treatment. Re-Screen 2-5 years. NOTE: T-SCORE=SD OF THE YOUNG ADULT MEAN.
== END | disposition home or self-care (01) ==
LOC: RADBDWWP 11:01
PROVIDERS: ATTEND Internal Medicine
DX: D32.0 Benign neoplasm of cerebral meninges (principal)
CPT/HCPCS: 70450; 77080